=== PATIENT | female | born 2000 | race Caucasian/White ===

== ENCOUNTER 2020-08-22 09:25 | Outpatient (CLI) | payer OTHER ==
[2020-08-22 17:57] LABS: SARS-CoV-2 PCR by NAA Not Detected (NotDetected)
== END 2020-08-22 09:26 | disposition home or self-care (01) ==
LOC: CSHLAB 09:25
PROVIDERS: ATTEND Obstetrics & Gynecology
DX: Z20.822 Contact with and (suspected) exposure to COVID-19 (principal)
CPT/HCPCS: 87635; U0003; U0005

== ENCOUNTER 2020-08-25 21:07 | Inpatient (IN) | payer OTHER ==
[~2020-08-25 21:07] MED LIST: Acetaminophen 500 MG TAB PO PRN; Butorphanol Tartrate 1 MG/ML VIAL SLOW IVP PRN; Carboprost 250 MCG/ML AMP IM PRN; Diphenoxylate HCl/Atropine Tablet PO PRN; Docusate 100 MG CAP PO PRN; HYDROcodone/Acetaminophen 5/325 mg Tablet PO PRN; Ibuprofen 800 MG TAB PO PRN; Lidocaine 1% (PF) 30 ML VIAL SC PRN; Methylergonovine 0.2 MG/ML VIAL IM PRN; Misoprostol 100 MCG TAB VAG SCH; Misoprostol 200 MCG TAB PR PRN; Ondansetron PF 4 MG/2 ML Vial IVP PRN; Promethazine HCl 25 MG/ML VIAL IM PRN; hydrALAZINE 20 MG/ML VIAL SLOW IVP PRN
[2020-08-26] MEDS ORDERED: NS w/ Oxytocin 30 units 500 ML IV PRN (06:16)
[2020-08-26] MEDS ORDERED: NS w/ Oxytocin 30 units 500 ML IVPB SCH ×2 (06:30)
[2020-08-26] MEDS: Lactated Ringer's 1,000 ML IV SCH ×3 (06:46→13:50)
[2020-08-26 07:26] LABS: Hemoglobin 10.7 g/dL (12.0-15.5); Mean Corpuscular HGB CONC 32.9 g/dL (32.0-36.0); Mean Corpuscular Hemoglobin 29.2 pg (27.0-33.0); Mean Corpuscular Volume 88.6 fl (81.6-98.3); Mean Platelet Volume 10.7 fl (7.4-10.4); Platelet Count 264 10x3/uL (150-450); RBC Distribution Width 15.5 % (11.5-14.5); Red Blood Cell (RBC) Count 3.67 10x6/uL (3.90-5.03); White Blood Cell (WBC) Count 7.9 10x3/uL (3.5-10.5)
[2020-08-26 07:28] VITALS: BMI 32.9
[2020-08-26 08:45] LABS: Hep B Surf Ag Non-Reactive S/CO (NonReactive); Syphilis Antibody Nonreactive (Nonreactive); Syphilis Antibody Index 0.02 S/CO (<1.00 Non-Reactive)
[2020-08-26 08:52] LABS: HBSAg Index 0.13 S/CO (0-0.99)
[2020-08-26] MEDS ORDERED: Fentanyl 4 mcg/Bup 0.1% Cadd 100 ML ONE (13:40)
[2020-08-26] MEDS ORDERED: Lactated Ringer's 500 ML IV PRN (14:25)
[2020-08-26] MEDS ORDERED: Ondansetron PF 4 MG/2 ML Vial IVP PRN (14:25)
[2020-08-26] MEDS ORDERED: Promethazine HCl 25 MG/ML VIAL IM PRN (14:25)
[2020-08-26] MEDS ORDERED: ePHEDrine 50 MG/ML VIAL SLOW IVP PRN (14:25)
[2020-08-26] MEDS ORDERED: Eucerin (Mineral Oil/Petrolatum,White) 30 gm Jar TOP PRN (14:25)
[2020-08-26] MEDS ORDERED: Naloxone HCl 0.4 mg/ml Vial IVP PRN ×2 (14:25)
[2020-08-26] MEDS ORDERED: diphenhydrAMINE 50 MG/ML VIAL IVP PRN (14:25)
[2020-08-26] MEDS ORDERED: Acetaminophen 325 MG TAB PO PRN (14:25)
[2020-08-26] MEDS ORDERED: Fentanyl 4 mcg/Bupivacaine 0.1% Cassette 100 ML EPIDURAL SCH (14:30)
[2020-08-26] MEDS ORDERED: Communication Order-Pharmacy FS SCH (14:30)
[2020-08-26] MEDS ORDERED: Misoprostol 200 MCG TAB ONE (21:28)
[2020-08-27] MEDS ORDERED: Benzocaine-Menthol 82.5 ML CAN TOP PRN (00:13)
[2020-08-27] MEDS ORDERED: Promethazine HCl 25 MG/ML VIAL IM PRN (00:13)
[2020-08-27] MEDS ORDERED: Zolpidem Tartrate 5 MG TAB PO PRN (00:13)
[2020-08-27] MEDS ORDERED: NS / Oxytocin 40 units/1000ml 1,000 ML IV SCH (00:13)
[2020-08-27] MEDS ORDERED: HYDROcodone/Acetaminophen 5/325 mg Tablet PO PRN (00:13)
[2020-08-27] MEDS ORDERED: Milk Of Magnesia 30 ML UDCUP PO PRN (00:13)
[2020-08-27] MEDS ORDERED: hydrALAZINE 20 MG/ML VIAL SLOW IVP PRN (00:13)
[2020-08-27] MEDS ORDERED: Bisacodyl 10 MG SUPP PR PRN (00:13)
[2020-08-27] MEDS ORDERED: Lanolin Ointment 7 GM TUBE TOP PRN (00:13)
[2020-08-27] MEDS ORDERED: Misoprostol 200 MCG TAB VAG PRN (00:13)
[2020-08-27] MEDS ORDERED: diphenhydrAMINE 25 MG CAP PO PRN (00:13)
[2020-08-27] MEDS ORDERED: Methylergonovine 0.2 MG/ML VIAL IM PRN (00:13)
[2020-08-27] MEDS ORDERED: Ondansetron PF 4 MG/2 ML Vial IVP PRN (00:13)
[2020-08-27] MEDS ORDERED: Preparation H Ointment 28 GM TUBE PR PRN (00:13)
[2020-08-27] MEDS ORDERED: NS w/ Oxytocin 30 units 500 ML IV SCH (00:30)
[2020-08-27] MEDS ORDERED: Docusate Calcium (SURFAK) 240 MG CAP PO SCH (00:30)
[2020-08-27] MEDS: Ibuprofen 800 MG TAB PO SCH ×4 (01:26→23:30)
[2020-08-27] MEDS: Ferrous Sulfate 325 MG TAB PO SCH ×2 (07:36→16:13)
[2020-08-27] MEDS: HYDROcodone/Acetaminophen 5/325 mg Tablet PO PRN ×2 (07:46→15:44)
[2020-08-27] MEDS ORDERED: Adacel (T-DAP) 0.5 ML SYRINGE IM ONE (09:00)
[2020-08-27] MEDS ORDERED: Varicella virus, LIVE 0.5 ML VIAL SC ONE (09:00)
[2020-08-27] MEDS ORDERED: Measles/Mumps/Rubella 10 MCG/0.5 ML VIAL SC ONE (09:00)
[2020-08-27] MEDS: Docusate Calcium (SURFAK) 240 MG CAP PO SCH ×2 (09:12→20:40)
[2020-08-27] MEDS: Prenatal Vitamin 1 TAB PO SCH (09:12)
[2020-08-28 07:42] VITALS: BP 104/74; TEMP 97.7
[2020-08-28] MEDS: Ferrous Sulfate 325 MG TAB PO SCH (07:46)
[2020-08-28] MEDS: Prenatal Vitamin 1 TAB PO SCH (08:31)
[2020-08-28] MEDS: Ibuprofen 800 MG TAB PO SCH (08:31)
[2020-08-28] MEDS: Docusate Calcium (SURFAK) 240 MG CAP PO SCH (08:32)
== END 2020-08-28 13:15 | disposition home or self-care (01) | DRG 807 ==
LOC: CSHLD 21:07 → UNDOADMIN 08-26 05:35 → CSHPED 08-27 00:30
PROVIDERS: ADMIT Obstetrics & Gynecology; ATTEND Obstetrics & Gynecology
PROC: 10E0XZZ Delivery of Products of Conception, External Approach (ICD-10-PCS; principal; 2020-08-26)
PROC: 3E033VJ Introduction of Other Hormone into Peripheral Vein, Percutaneous Approach (ICD-10-PCS; 2020-08-26)
PROC: 3E0P7VZ Introduction of Hormone into Female Reproductive, Via Natural or Artificial Opening (ICD-10-PCS; 2020-08-26)
PROC: 0HQ9XZZ Repair Perineum Skin, External Approach (ICD-10-PCS; 2020-08-26)
DX: O70.0 First degree perineal laceration during delivery (principal); Z20.822 Contact with and (suspected) exposure to COVID-19; Z23 Encounter for immunization; Z37.0 Single live birth; Z3A.39 39 weeks gestation of pregnancy
CPT/HCPCS: 36415; 51702; 85027; 86780; 86850; 86900; 86901; 87340; 90715; J2590

== ENCOUNTER 2023-01-17 10:47 | Emergency (ER) | payer OTHER ==
[2023-01-17 13:03] LABS: Pregnancy Test - Urine (BHCG) Negative (Negative); Pregu Control Background? CLEAR/WHITE (CLR/WHITE); Pregu Control Bar Appear? YES (CONTROL BAR)
== END 2023-01-17 12:10 | disposition home or self-care (01) ==
LOC: CSHERS 10:47
DX: S16.1XXA Strain of muscle, fascia and tendon at neck level, initial encounter (principal); S39.012A Strain of muscle, fascia and tendon of lower back, initial encounter; V89.2XXA Person injured in unspecified motor-vehicle accident, traffic, initial encounter
CPT/HCPCS: 72040; 72100; 81025